=== PATIENT | male | born 1995 | race African-American/Black ===

== ENCOUNTER 2016-11-27 11:35 | Emergency (ER) | payer BC ==
[~2016-11-27] VITALS: Wt 65.9 kg
--- NOTE | 2016-11-27 13:20 | ERD ---
ER Documentation Chief Complaint Date/Time DATE: 11/27/16 TIME: 13:16 Chief Complaint PUNCTURE WOUND TO LEFT HEEL, PT. AUTISTIC HPI This patient is a 21-year-old male with history of autism presenting with his sister who is helping translate for blood blister and possible foreign body to the left heel. The sister states they first noticed the blood blister about 3 weeks ago but they deny any trauma. The patient believes there may be something stuck in the heel. Tetanus is not up-to-date. There have been no fevers, chills, nausea, vomiting, diarrhea or other symptoms at this time. There are no other alleviating or exacerbating factors at this time. ROS All systems reviewed and are negative except as per history of present illness. PMhx/Soc Medical and Surgical Hx: pt denies Medical Hx, pt denies Surgical Hx Hx Alcohol Use: No Hx Substance Use: No Hx Tobacco Use: No Smoking Status: Never smoker FmHx Noncontributory for chief complaint Physical Exam Vitals Vital Signs Date Time Temp Pulse Resp B/P Pulse Ox O2 Delivery O2 Flow Rate FiO2 11/27/16 11:43 97.6 90 20 140/79 99 Physical Exam INITIAL VITAL SIGNS: Reviewed by me. GENERAL: Alert and interactive. No acute distress. HEAD: Head is normocephalic and atraumatic. EYES: EOMI. No scleral icterus. No conjunctival injection. ENT: Moist mucosa. NECK: Supple. Full range of motion. RESPIRATORY: Normal respiratory effort. Clear breath sounds bilaterally. No wheezing, rales, or rhonchi. CV: Regular rate and rhythm. Normal S1 S2. No S3 or S4. No murmurs. ABDOMEN: Soft, non-distended, non-tender. No guarding. No rebound. No masses. EXTREMITIES: There is a 4 cm x 4 cm subcutaneous blood blister on the left heel. There is no open wound, obvious deformity, or discharge from the area. There is no tenderness to palpation of the area. SKIN: Warm and dry. NEUROLOGIC: Alert and oriented x 4. Speech is normal. Moves all extremities equally. No motor or sensory deficits noted. Results 24 hrs Current Medications Medications (Trade) Dose Ordered Sig/Sneha Route PRN Reason Start Time Stop Time Status Last Admin Dose Admin Diphtheria/ Tetanus/Acell Pertussis (Adacel) 0.5 ml ONCE ONCE IM* 11/27/16 13:30 11/27/16 13:31 DC 11/27/16 13:45 Procedures/MDM Xray foot 3 view interpreted by radiologist: IMPRESSION: Unremarkable left foot with no radiopaque foreign body evident. MDM: 21-year-old male presents to the emergency department with his sister who is translating for blood blister to left heel. I have ordered a 3 view x-ray of the left foot looking for any foreign body or obvious fracture or deformity. I have ordered a Tdap since it is reportedly not up-to-date. On review of the three-view x-ray of the left foot it is unremarkable for any fracture or foreign body. The patient will be discharged home at this time and him and the sister were counseled that the blood blister will resolve on its own. If the blood blister spreads or the patient is febrile or has any other concerning symptoms he is to return the emergency department immediately. The sister understands this information. All questions and concerns of been addressed at this time. The patient stable for discharge. Departure Diagnosis: Primary Impression: Injury of foot Additional Impression: Foot pain Condition: Stable Patient Instructions: Contusion, Foot Additional Instructions: Follow-up with your primary care physician within 1 week. Return to the emergency department immediately should you have any new or worsening symptoms, uncontrolled fevers, or other unexplained symptoms. Take all medications as directed. COURTNEY DAVIS PA-C Nov 27, 2016 13:19
[2016-11-27] MEDS ORDERED: DIPHTH/TET/ACEL PERTUSS (ADULT) 0.5 ML VIAL IM* ONE (13:30)
--- NOTE | 2016-11-27 13:45 | RADRPT ---
PROCEDURE: XR Left Foot CLINICAL INDICATION: Possible foreign body in the heel TECHNIQUE: AP, oblique, and lateral radiographs were submitted. COMPARISON: None FINDINGS: Osseous structures: appear well mineralized and intact with no fracture or destructive process iden tified. Joint spaces: are well maintained, with no significant spurring, erosion or joint effusion evident. Soft tissues: Appear unremarkable with no radiopaque foreign body identified. IMPRESSION: Unremarkable left foot with no radiopaque foreign body evident. Physician Fredrick Date Time Electronically viewed and signed by Physician Fredrick on 11/27/2016 13:45 RH/
== END 2016-11-27 14:25 | disposition home or self-care (01) ==
LOC: FTE 11:35
DX: S90.822A Blister (nonthermal), left foot, initial encounter (principal); F84.0 Autistic disorder; W22.8XXA Striking against or struck by other objects, initial encounter; Y92.9 Unspecified place or not applicable; Z23 Encounter for immunization
CPT/HCPCS: 90471; 90715